=== PATIENT | female | born 1945 | race Caucasian/White ===

== ENCOUNTER 2018-04-20 09:05 | Inpatient (IN) | payer OTHER ==
[~2018-04-20] VITALS: Ht 165.1 cm; Wt 92.1 kg
[2018-04-20 11:22] LABS: Urine Bacteria FEW /hpf (None Seen); Urine Blood 2+ /uL (Negative); Urine WBC 6 /hpf (0 - 5)
[2018-04-20] MEDS ORDERED: SODIUM CHLORIDE 0.9% 1,000 ML IVB ONE (11:29)
[2018-04-20 11:34] LABS: Basophils # (auto) 0.1 uL; Basophils % (auto) 0.5 % (0.0-2.0); Eosinophils # (auto) 0 uL; Hematocrit 39.6 % (36.0-46.0); Hemoglobin 12.5 g/dL (12.2-16.2); Lymphocytes # (auto) 1.6 uL; Lymphocytes % (auto) 12.1 % (10.0-50.0); Mean Corpuscular Hgb Conc. 31.5 g/dL (32.0-36.0); Monocytes # (auto) 0.8 uL; Monocytes % (auto) 5.6 % (0.0-12.0); Neutrophils # (auto) 11.1 uL; Neutrophils % (auto) 81.8 % (37.0-80.0); Platelet Count (auto) 236 10^3/uL (140-450); Red Blood Cells 4.16 10^6/uL (4.0-5.20); White Blood Cell 13.6 10^3/uL (4.4-10.8)
[2018-04-20 11:52] LABS: Alanine Aminotransferase 34 U/L (13-56); Albumin 3.2 g/dL (3.4-5.0); Anion Gap 16 (5-15); Aspartate Aminotransferase 37 U/L (15-37); BUN/Creatinine Ratio 23.9; Blood Alcohol < 3.0 mg/dL (0-5); Calcium 7.9 mg/dL (8.5-10.1); Carbon Dioxide 13 mmol/L (21-32); Chloride 120 mmol/L (98-107); GFR African American 15 mL/min; GFR Non-African American 13 mL/min; Glucose 169 mg/dL (74-106); Magnesium 2.7 mg/dL (1.6-2.6); Potassium 4.4 mmol/L (3.5-5.1); Sodium 149 mmol/L (136-145)
[2018-04-20 11:54] LABS: Lactic Acid w/Reflex 2.3 mmol/L (0.4-2.0)
[2018-04-20 11:57] LABS: Alkaline Phosphatase 109 U/L (45-117); Bilirubin, Total 0.6 mg/dL (0.2-1.0); Total Protein 7.4 g/dL (6.4-8.2)
[2018-04-20 12:01] LABS: Blood Urea Nitrogen 89 mg/dL (7-18)
[2018-04-20] MEDS ORDERED: SODIUM CHLORIDE 0.9% 1,000 ML IV ONE ×2 (12:15→14:15)
[2018-04-20 12:51] LABS: Alcohol, Urine < 3.0 mg/dL (0-5); Amphetamine Screen, Urine NEGATIVE (NEGATIVE); Barbiturate Scree,Urine NEGATIVE (NEGATIVE); Benzodiazephine Screen, Urine NEGATIVE (NEGATIVE); Cannabinoid Screen, Urine NEGATIVE (NEGATIVE); Cocaine Screen, Urine NEGATIVE (NEGATIVE); Opiate Scree,Urine NEGATIVE (NEGATIVE); Phencyclidine Screen, Urine NEGATIVE (NEGATIVE)
[2018-04-20 12:57] LABS: INR 1.03 (0.9-1.15); Partial Thromboplastin Time 21.5 sec (23.78-33.04)
[2018-04-20] MEDS ORDERED: GLIP-115 (13:03)
[2018-04-20] MEDS ORDERED: LORA-654 (13:03)
[2018-04-20] MEDS ORDERED: ATOR1TAB (13:03)
[2018-04-20] MEDS ORDERED: IBUP800T24 (13:03)
[2018-04-20] MEDS ORDERED: FER325T PO (13:03)
[2018-04-20] MEDS ORDERED: SERT-275 (13:03)
[2018-04-20] MEDS ORDERED: GABA300C10 (13:03)
[2018-04-20] MEDS ORDERED: METF-370 (13:03)
[2018-04-20] MEDS ORDERED: ATEN50TA (13:03)
[2018-04-20] MEDS ORDERED: ENAL5TAB92 (13:03)
[2018-04-20] MEDS ORDERED: HYDR-4683 PO (13:05)
[2018-04-20] MEDS ORDERED: HYDROcodone-ACET 5/325MG TAB PO PRN (14:15)
[2018-04-20] MEDS ORDERED: LACTULOSE 20Gm/30ML SOLN PO PRN ×2 (14:15)
[2018-04-20] MEDS ORDERED: PANTOPRAZOLE 40 MG/10 ML VIAL IV ONE (14:15)
[2018-04-20] MEDS ORDERED: cefTRIAXone 1GM/10ml IVPUSH 10 ML IV ONE (14:15)
[2018-04-20] MEDS ORDERED: LORazepam 0.5 MG TAB PO PRN (14:15)
[2018-04-20] MEDS ORDERED: DEXTROSE (50%) 50ML SYRG IV PRN (14:15)
[2018-04-20] MEDS ORDERED: LABETALOL HCL 5 MG/ML ML 20ML VIAL IV PRN (14:15)
[2018-04-20] MEDS ORDERED: SODIUM BICARBONATE 50ML VIAL 50 ML in D5W 5% 1,000 ML IV SCH (14:15)
[2018-04-20] MEDS ORDERED: ACETAMINOPHEN 500 MG TAB PO PRN (14:15)
[2018-04-20] MEDS ORDERED: MORPHINE SULF INJ 2 MG/ML SYRINGE 1ML IV PRN ×2 (14:15)
[2018-04-20] MEDS ORDERED: TEMAZEPAM 15 MG CAP PO PRN (14:15)
[2018-04-20] MEDS ORDERED: NITROGLYCERIN 0.4 MG SL TAB SL PRN (14:15)
[2018-04-20] MEDS ORDERED: PROMETHAZINE HCL 25 MG/ML 1ML IV PRN (14:15)
[2018-04-20] MEDS: InsuLIN REG 1unit/0.01ml Soln (100units/ml) SC SCH ×2 (16:00→21:41)
[2018-04-20 16:40] LABS: Amylase 102 U/L (25-115); Lipase 762 U/L (73-393)
[2018-04-20] MEDS: SODIUM BICARBONATE 50ML VIAL 100 ML in D5W 5% 1,000 ML IV SCH (17:05)
[2018-04-20] MEDS: ACCU-CHEK COMFORT CURVE STRIP VI SCH ×2 (17:05→20:00)
[2018-04-20 17:10] LABS: Protein, Urine 141.2 mg/dL (0.0-11.9)
[2018-04-20 18:42] VITALS: BP 150/85
[2018-04-20] MEDS ORDERED: LORazepam 2MG/ML-1ML VIAL IV PRN (19:00)
[2018-04-20] MEDS ORDERED: CYANOCOBALAMIN (B-12) 1000 MCG/1 ML VIAL IM ONE (19:00)
[2018-04-20 19:02] LABS: Folate (Folic Acid) 8.95 ng/mL (5.38-24)
[2018-04-20 20:00] VITALS: BP 139/66
[2018-04-20] MEDS ORDERED: ATORVASTATIN 20 MG TAB PO SCH (22:00)
[2018-04-21] MEDS: SODIUM BICARBONATE 50ML VIAL 100 ML in D5W 5% 1,000 ML IV SCH ×2 (01:48→12:58)
[2018-04-21] MEDS: ACCU-CHEK COMFORT CURVE STRIP VI SCH ×6 (04:00→20:00)
[2018-04-21] MEDS: InsuLIN REG 1unit/0.01ml Soln (100units/ml) SC SCH ×6 (04:00→20:51)
[2018-04-21 05:42] LABS: Basophils # (auto) 0.1 uL; Basophils % (auto) 0.7 % (0.0-2.0); Eosinophils # (auto) 0.2 uL; Eosinophils % (auto) 1.6 % (0.0-7.0); Hematocrit 29.5 % (36.0-46.0); Hemoglobin 9.6 g/dL (12.2-16.2); Lymphocytes # (auto) 2.3 uL; Lymphocytes % (auto) 20.7 % (10.0-50.0); Mean Corpuscular Hemoglobin 31.3 pg (28.0-32.0); Mean Corpuscular Hgb Conc. 32.6 g/dL (32.0-36.0); Monocytes # (auto) 0.7 uL; Monocytes % (auto) 6.6 % (0.0-12.0); Neutrophils # (auto) 7.9 uL; Neutrophils % (auto) 70.4 % (37.0-80.0); Nucleated Red Blood Cells % 0.1 %; Platelet Count (auto) 178 10^3/uL (140-450); Red Blood Cells 3.07 10^6/uL (4.0-5.20); White Blood Cell 11.2 10^3/uL (4.4-10.8)
[2018-04-21 06:05] LABS: Albumin 2.3 g/dL (3.4-5.0); BUN/Creatinine Ratio 29.6; Calcium 6.6 mg/dL (8.5-10.1)
[2018-04-21 06:13] LABS: Bilirubin, Total 0.5 mg/dL (0.2-1.0); Total Protein 5.5 g/dL (6.4-8.2)
[2018-04-21 08:00] VITALS: BP 123/66
[2018-04-21] MEDS ORDERED: CYANOCOBALAMIN 500 MCG TAB PO SCH (10:00)
[2018-04-21] MEDS: PANTOPRAZOLE 40 MG/10 ML VIAL IV SCH (11:14)
[2018-04-21] MEDS: ASPirin 81 mg TAB PO SCH (11:14)
[2018-04-21] MEDS: cefTRIAXone 1GM/10ml IVPUSH 10 ML IV SCH (11:14)
[2018-04-21] MEDS: ENOXAPARIN SOD 30 MG/0.3 ML SYRINGE SC SCH (11:15)
[2018-04-21] MEDS: CYANOCOBALAMIN 500 MCG TAB PO SCH (11:15)
[2018-04-21 12:00] VITALS: BP 114/57
[2018-04-21 16:00] VITALS: BP 111/54
[2018-04-21 20:00] VITALS: BP_SYST 123; BP_SYST 97; BP_DIAS 48; BP_DIAS 65
[2018-04-21] MEDS: ATORVASTATIN 20 MG TAB PO SCH (21:42)
[2018-04-22] MEDS: SODIUM BICARBONATE 50ML VIAL 100 ML in D5W 5% 1,000 ML IV SCH ×3 (01:30→21:48)
[2018-04-22 04:00] VITALS: BP 138/61
[2018-04-22] MEDS: ACCU-CHEK COMFORT CURVE STRIP VI SCH ×5 (04:00→21:25)
[2018-04-22] MEDS: InsuLIN REG 1unit/0.01ml Soln (100units/ml) SC SCH ×5 (04:00→21:26)
[2018-04-22 05:32] LABS: Basophils # (auto) 0 uL; Basophils % (auto) 0.5 % (0.0-2.0); Eosinophils # (auto) 0.3 uL; Eosinophils % (auto) 3.4 % (0.0-7.0); Hematocrit 28.4 % (36.0-46.0); Hemoglobin 9.7 g/dL (12.2-16.2); Lymphocytes % (auto) 27.2 % (10.0-50.0); Mean Corpuscular Hemoglobin 31.9 pg (28.0-32.0); Mean Corpuscular Hgb Conc. 34.2 g/dL (32.0-36.0); Mean Corpuscular Volume 93.1 fL (80.0-100.0); Monocytes # (auto) 0.7 uL; Monocytes % (auto) 8.9 % (0.0-12.0); Neutrophils # (auto) 4.5 uL; Platelet Count (auto) 162 10^3/uL (140-450); Red Blood Cells 3.05 10^6/uL (4.0-5.20); Red Cell Distribution Width 14.8 % (11.8-14.3); White Blood Cell 7.4 10^3/uL (4.4-10.8)
[2018-04-22 05:58] LABS: Calcium 7.1 mg/dL (8.5-10.1); Magnesium 1.7 mg/dL (1.6-2.6)
[2018-04-22] MEDS ORDERED: POTASSIUM CHL 20 Meq TABLET PO ONE ×2 (07:15→14:00)
[2018-04-22 08:00] VITALS: BP 139/60
[2018-04-22] MEDS: MAGNESIUM SULFATE 1GM/100ML 100 ML IV SCH ×3 (08:22→11:27)
[2018-04-22] MEDS: cefTRIAXone 1GM/10ml IVPUSH 10 ML IV SCH (08:22)
[2018-04-22] MEDS: PANTOPRAZOLE 40 MG/10 ML VIAL IV SCH (10:28)
[2018-04-22] MEDS: ASPirin 81 mg TAB PO SCH (10:28)
[2018-04-22] MEDS: CYANOCOBALAMIN 500 MCG TAB PO SCH (10:29)
[2018-04-22] MEDS: ENOXAPARIN SOD 30 MG/0.3 ML SYRINGE SC SCH (10:29)
[2018-04-22] MEDS: amLODIPine BESYLATE 5 MG TAB PO SCH (10:30)
[2018-04-22] MEDS ORDERED: LORazepam 2MG/ML-1ML VIAL IV ONE (10:30)
[2018-04-22 12:00] VITALS: BP 111/53
[2018-04-22 16:00] VITALS: BP 103/43
[2018-04-22 19:48] VITALS: BP 131/72
[2018-04-22] MEDS: ATORVASTATIN 20 MG TAB PO SCH (21:25)
[2018-04-23] VITALS (8 sets, daily range): BP systolic 125–156; BP diastolic 46–84
[2018-04-23] MEDS: ACCU-CHEK COMFORT CURVE STRIP VI SCH ×4 (05:37→21:47)
[2018-04-23] MEDS: InsuLIN REG 1unit/0.01ml Soln (100units/ml) SC SCH ×4 (05:41→21:47)
[2018-04-23 06:06] LABS: Calcium 7.5 mg/dL (8.5-10.1); Magnesium 2.4 mg/dL (1.6-2.6); Potassium 3.4 mmol/L (3.5-5.1)
[2018-04-23] MEDS: CYANOCOBALAMIN 500 MCG TAB PO SCH (10:07)
[2018-04-23] MEDS: ENOXAPARIN SOD 30 MG/0.3 ML SYRINGE SC SCH (10:07)
[2018-04-23] MEDS: ASPirin 81 mg TAB PO SCH (10:07)
[2018-04-23] MEDS: PANTOPRAZOLE 40 MG/10 ML VIAL IV SCH (10:07)
[2018-04-23] MEDS: amLODIPine BESYLATE 5 MG TAB PO SCH (10:08)
[2018-04-23] MEDS: cefTRIAXone 1GM/10ml IVPUSH 10 ML IV SCH (10:08)
[2018-04-23] MEDS: POTASSIUM CHL 20 Meq TABLET PO SCH ×2 (13:45→18:04)
[2018-04-23] MEDS ORDERED: HYDROcodone-ACET 5/325MG TAB PO PRN (13:45)
[2018-04-23] MEDS: ATORVASTATIN 20 MG TAB PO SCH (21:47)
[2018-04-24] MEDS: ACCU-CHEK COMFORT CURVE STRIP VI SCH ×2 (06:16→12:17)
[2018-04-24] MEDS: InsuLIN REG 1unit/0.01ml Soln (100units/ml) SC SCH ×2 (06:16→11:30)
[2018-04-24 07:03] LABS: BUN/Creatinine Ratio 18.2; Magnesium 1.8 mg/dL (1.6-2.6); Potassium 4.1 mmol/L (3.5-5.1)
[2018-04-24 09:00] VITALS: BP 136/78
[2018-04-24] MEDS ORDERED: PANTOPRAZOLE 40 MG TAB PO SCH (10:00)
[2018-04-24] MEDS: MAGNESIUM SULFATE 1GM/100ML 100 ML IV SCH ×2 (10:06→12:16)
[2018-04-24] MEDS: ENOXAPARIN SOD 30 MG/0.3 ML SYRINGE SC SCH (10:07)
[2018-04-24] MEDS: cefTRIAXone 1GM/10ml IVPUSH 10 ML IV SCH (10:07)
[2018-04-24] MEDS: ASPirin 81 mg TAB PO SCH (10:07)
[2018-04-24] MEDS: amLODIPine BESYLATE 5 MG TAB PO SCH (10:07)
[2018-04-24] MEDS: CYANOCOBALAMIN 500 MCG TAB PO SCH (12:16)
[2018-04-24 13:00] VITALS: BP 160/85
[2018-04-24 17:00] VITALS: BP 160/98
== END 2018-04-24 17:40 | DRG 871 ==
LOC: EDBD 09:05 → ER 09:05 → TELE 09:06 → DOU IN ICU 15:13 → TELE-WESTW 04-23 16:37
PROVIDERS: ADMIT Internal Medicine; ATTEND Family Medicine
DX: A41.9 Sepsis, unspecified organism (principal); G93.41 Metabolic encephalopathy; N17.0 Acute kidney failure with tubular necrosis; I63.9 Cerebral infarction, unspecified; E87.0 Hyperosmolality and hypernatremia; N39.0 Urinary tract infection, site not specified; E87.2 Acidosis; N18.4 Chronic kidney disease, stage 4 (severe); M62.82 Rhabdomyolysis; R45.851 Suicidal ideations; T50.902A Poisoning by unspecified drugs, medicaments and biological substances, intentional self-harm, initial encounter; E11.21 Type 2 diabetes mellitus with diabetic nephropathy; E11.22 Type 2 diabetes mellitus with diabetic chronic kidney disease; E78.5 Hyperlipidemia, unspecified; E86.0 Dehydration; E87.6 Hypokalemia; N20.0 Calculus of kidney; G30.9 Alzheimer's disease, unspecified; T50.901A Poisoning by unspecified drugs, medicaments and biological substances, accidental (unintentional), initial encounter; I49.8 Other specified cardiac arrhythmias; F17.200 Nicotine dependence, unspecified, uncomplicated; G89.29 Other chronic pain; M54.5 Low back pain; F02.80 Dementia in other diseases classified elsewhere, unspecified severity, without behavioral disturbance, psychotic disturbance, mood disturbance, and anxiety; J44.9 Chronic obstructive pulmonary disease, unspecified; T39.1X5A Adverse effect of 4-Aminophenol derivatives, initial encounter; L89.90 Pressure ulcer of unspecified site, unspecified stage; F32.9 Major depressive disorder, single episode, unspecified; I12.9 Hypertensive chronic kidney disease with stage 1 through stage 4 chronic kidney disease, or unspecified chronic kidney disease; Z66 Do not resuscitate; Z79.82 Long term (current) use of aspirin; Z74.01 Bed confinement status; Z82.49 Family history of ischemic heart disease and other diseases of the circulatory system; Z79.899 Other long term (current) drug therapy; Z99.81 Dependence on supplemental oxygen; Z90.710 Acquired absence of both cervix and uterus; Z85.828 Personal history of other malignant neoplasm of skin; Z83.3 Family history of diabetes mellitus; Y92.89 Other specified places as the place of occurrence of the external cause; Z88.0 Allergy status to penicillin
CPT/HCPCS: 36415; 51702; 70450; 70551; 71045; 76775; 80048; 80053; 80061; 80307; 80320; 81001; 82140; 82150; 82550; 82570; 82607; 82746; 82962; 83036; 83605; 83690; 83735; 84156; 84300; 84443; 84484; 85025; 85610; 85652; 85730; 87040; 87081; 87086; 93005; 93306; 93886; 95819; 96361; 96374; 96375; 97110; 97116; 97163; 97530; 99291; C9113; J0696; J1815

== ENCOUNTER 2022-09-19 09:15 | Inpatient (IN) | payer OTHER ==
[~2022-09-19] VITALS: Ht 170.2 cm; Wt 102.8 kg
[~2022-09-19 09:15] MED LIST: ATEN50TA; ATOR-47; ENAL5TAB10 PO; FER325T PO; GABA300C10 PO; GLIP5TAB12 PO; HYDR-4833 PO; IBUP800T26; LORA0.5T20; METF-370; SERT25TA14
[2022-09-19] MEDS ORDERED: SODIUM CHLORIDE 0.9% 500 ML IVB ONE (11:00)
[2022-09-19] MEDS ORDERED: SODIUM CHLORIDE 0.9% 1,000 ML IV ONE (11:00)
[2022-09-19 11:58] LABS: Basophils # (auto) 0 10 ^3/uL (0-0.2); Basophils % (auto) 0.3 % (0.0-2.0); Eosinophils # (auto) 0.1 10 ^3/uL (0-0.8); Eosinophils % (auto) 0.9 % (0.0-7.0); Hematocrit 43.2 % (36.0-46.0); Hemoglobin 13.7 g/dL (12.2-16.2); Lymphocytes # (auto) 1.7 10 ^3/uL (0.4-5.4); Lymphocytes % (auto) 19.7 % (10.0-50.0); Mean Corpuscular Hemoglobin 32.1 pg (28.0-32.0); Mean Corpuscular Hgb Conc. 31.7 g/dL (32.0-36.0); Mean Corpuscular Volume 101.5 fL (80.0-100.0); Monocytes # (auto) 0.8 10 ^3/uL (0-1.3); Monocytes % (auto) 9.7 % (0.0-12.0); Neutrophils # (auto) 5.9 10 ^3/uL (1.6-8.6); Neutrophils % (auto) 69.4 % (37.0-80.0); Red Blood Cells 4.26 10^6/uL (4.0-5.20); Red Cell Distribution Width 15.1 % (11.8-14.3); White Blood Cell 8.6 10^3/uL (4.4-10.8)
[2022-09-19 12:07] LABS: INR 1.08 (0.9-1.15); Partial Thromboplastin Time 24.7 sec (24.6-33.4)
[2022-09-19 13:18] LABS: Albumin 3.2 g/dL (3.4-5.0); Calcium 9.6 mg/dL (8.5-10.1); Potassium 4.7 mmol/L (3.5-5.1)
[2022-09-19 13:20] LABS: BUN/Creatinine Ratio 13.6
[2022-09-19 13:22] LABS: Bilirubin, Total 0.9 mg/dL (0.2-1.0)
[2022-09-19 15:06] LABS: Urine Bacteria NONE SEEN /hpf (None Seen); Urine Blood Negative /uL (Negative); Urine Hyaline Cast FEW /lpf (0 - 2); Urine Specific Gravity 1.019 (1.001-1.035); Urine WBC 4 /hpf (0 - 5)
[2022-09-19] MEDS ORDERED: cefTRIAXone 1GM/50ML D5W 50 ML IV ONE (17:30)
[2022-09-19] MEDS ORDERED: DEXTROSE (50%) 50ML SYRG IV PRN (19:45)
[2022-09-19] MEDS ORDERED: levoFLOXacin 500MG 100 ML IV ONE (20:00)
[2022-09-19 20:59] LABS: Phosphorus 2.5 mg/dL (2.5-4.90)
[2022-09-19] MEDS: ATORVASTATIN 20 MG TAB PO SCH (21:57)
[2022-09-19] MEDS: ENOXAPARIN SOD 120 MG/0.8 ML SYRINGE SC SCH (21:57)
[2022-09-19] MEDS: METOPROLOL TARTRATE 50 MG TAB PO SCH (21:59)
[2022-09-20 03:44] LABS: Alcohol, Urine < 3.0 mg/dL (0-10); Amphetamine Screen, Urine NEGATIVE (NEGATIVE); Barbiturate Scree,Urine NEGATIVE (NEGATIVE); Benzodiazephine Screen, Urine NEGATIVE (NEGATIVE); Cannabinoid Screen, Urine NEGATIVE (NEGATIVE); Cocaine Screen, Urine NEGATIVE (NEGATIVE); Opiate Scree,Urine NEGATIVE (NEGATIVE); Phencyclidine Screen, Urine NEGATIVE (NEGATIVE)
[2022-09-20] MEDS: InsuLIN REG 1unit/0.01ml Soln (100units/ml) SC SCH ×4 (06:17→18:00)
[2022-09-20] MEDS: ACCU-CHEK COMFORT CURVE STRIP VI SCH ×4 (06:18→18:18)
[2022-09-20] MEDS: SODIUM CHLORIDE 0.9% 1,000 ML IV SCH ×2 (08:19→15:45)
[2022-09-20] MEDS ORDERED: PANTOPRAZOLE 40 MG/10 ML VIAL INJ IV SCH (10:00)
[2022-09-20] MEDS: ENOXAPARIN SOD 120 MG/0.8 ML SYRINGE SC SCH ×2 (10:00→21:19)
[2022-09-20] MEDS: ASPirin 81 mg TAB PO SCH (10:00)
[2022-09-20] MEDS: METOPROLOL TARTRATE 50 MG TAB PO SCH ×2 (10:00→21:18)
[2022-09-20 13:10] VITALS: BP 133/59
[2022-09-20] MEDS ORDERED: PIOG1TAB36 PO (13:16)
[2022-09-20] MEDS ORDERED: CARB25TA77 PO (13:16)
[2022-09-20] MEDS ORDERED: MET25T PO (13:16)
[2022-09-20 17:03] VITALS: BP 139/55
[2022-09-20 20:00] VITALS: BP 129/69
[2022-09-20] MEDS: ATORVASTATIN 20 MG TAB PO SCH (21:17)
[2022-09-20] MEDS: levoFLOXacin 250MG 50 ML IV SCH (21:21)
[2022-09-20 22:00] VITALS: BP 129/63
[2022-09-21] VITALS (7 sets, daily range): BP systolic 105–133; BP diastolic 47–69
[2022-09-21] MEDS: ACCU-CHEK COMFORT CURVE STRIP VI SCH ×4 (01:06→18:00)
[2022-09-21] MEDS: SODIUM CHLORIDE 0.9% 1,000 ML IV SCH ×3 (01:45→21:54)
[2022-09-21] MEDS: InsuLIN REG 1unit/0.01ml Soln (100units/ml) SC SCH ×4 (05:22→18:54)
[2022-09-21 06:39] LABS: Basophils # (auto) 0.1 10 ^3/uL (0-0.2); Basophils % (auto) 0.9 % (0.0-2.0); Eosinophils # (auto) 0.3 10 ^3/uL (0-0.8); Eosinophils % (auto) 4.1 % (0.0-7.0); Hematocrit 40.3 % (36.0-46.0); Hemoglobin 12.5 g/dL (12.2-16.2); Lymphocytes # (auto) 1.8 10 ^3/uL (0.4-5.4); Lymphocytes % (auto) 22.4 % (10.0-50.0); Mean Corpuscular Hemoglobin 32.1 pg (28.0-32.0); Mean Corpuscular Volume 103.3 fL (80.0-100.0); Monocytes # (auto) 0.9 10 ^3/uL (0-1.3); Neutrophils # (auto) 4.8 10 ^3/uL (1.6-8.6); Neutrophils % (auto) 61.6 % (37.0-80.0); Nucleated Red Blood Cells % 0.5 %; Red Cell Distribution Width 15.1 % (11.8-14.3); White Blood Cell 7.8 10^3/uL (4.4-10.8)
[2022-09-21 06:49] LABS: BUN/Creatinine Ratio 13.6; Calcium 8.8 mg/dL (8.5-10.1); Magnesium 1.8 mg/dL (1.6-2.6); Potassium 4.4 mmol/L (3.5-5.1)
[2022-09-21] MEDS: ASPirin 81 mg TAB PO SCH (09:52)
[2022-09-21] MEDS: ENOXAPARIN SOD 120 MG/0.8 ML SYRINGE SC SCH ×2 (09:52→22:06)
[2022-09-21] MEDS: METOPROLOL TARTRATE 50 MG TAB PO SCH ×2 (09:53→22:04)
[2022-09-21 10:40] LABS: Folate (Folic Acid) > 24.00 ng/mL (5.38-24)
[2022-09-21] MEDS: levoFLOXacin 250MG 50 ML IV SCH (21:59)
[2022-09-21] MEDS: ATORVASTATIN 20 MG TAB PO SCH (21:59)
[2022-09-21] MEDS: MIRTAZAPINE 30 MG TAB PO SCH (22:06)
[2022-09-22] MEDS: ACCU-CHEK COMFORT CURVE STRIP VI SCH ×4 (00:40→18:59)
[2022-09-22] MEDS: InsuLIN REG 1unit/0.01ml Soln (100units/ml) SC SCH ×4 (00:44→19:01)
[2022-09-22 05:00] VITALS: BP 110/39
[2022-09-22 08:00] VITALS: BP 129/57
[2022-09-22 08:06] LABS: RPR Non Reactive (Non Reactive)
[2022-09-22 09:00] VITALS: BP 129/57
[2022-09-22] MEDS: ASPirin 81 mg TAB PO SCH (09:23)
[2022-09-22] MEDS: ENOXAPARIN SOD 120 MG/0.8 ML SYRINGE SC SCH ×2 (09:24→21:58)
[2022-09-22] MEDS: METOPROLOL TARTRATE 50 MG TAB PO SCH ×2 (09:27→21:58)
[2022-09-22] MEDS: SODIUM CHLORIDE 0.9% 1,000 ML IV SCH ×2 (09:27→16:14)
[2022-09-22 13:00] VITALS: BP 126/55
[2022-09-22 20:00] VITALS: BP 99/55
[2022-09-22 21:53] VITALS: BP 99/51
[2022-09-22] MEDS: levoFLOXacin 250MG 50 ML IV SCH (21:57)
[2022-09-22] MEDS: ATORVASTATIN 20 MG TAB PO SCH (21:58)
[2022-09-22] MEDS: MIRTAZAPINE 30 MG TAB PO SCH (21:58)
[2022-09-23] VITALS (8 sets, daily range): BP systolic 102–142; BP diastolic 42–61
[2022-09-23] MEDS: ACCU-CHEK COMFORT CURVE STRIP VI SCH ×5 (00:37→23:28)
[2022-09-23] MEDS: SODIUM CHLORIDE 0.9% 1,000 ML IV SCH ×3 (03:45→23:45)
[2022-09-23] MEDS: InsuLIN REG 1unit/0.01ml Soln (100units/ml) SC SCH ×5 (06:00→23:28)
[2022-09-23] MEDS: ASPirin 81 mg TAB PO SCH (10:23)
[2022-09-23] MEDS: METOPROLOL TARTRATE 50 MG TAB PO SCH ×2 (10:24→21:10)
[2022-09-23] MEDS: ENOXAPARIN SOD 120 MG/0.8 ML SYRINGE SC SCH (10:28)
[2022-09-23] MEDS: ENOXAPARIN SOD 100 MG/1 ML SYRINGE SC SCH (21:09)
[2022-09-23] MEDS: MIRTAZAPINE 30 MG TAB PO SCH (21:10)
[2022-09-23] MEDS: ATORVASTATIN 20 MG TAB PO SCH (21:11)
[2022-09-23] MEDS: levoFLOXacin 250MG 50 ML IV SCH (21:11)
[2022-09-24 05:00] VITALS: BP 135/54
[2022-09-24] MEDS: ACCU-CHEK COMFORT CURVE STRIP VI SCH ×2 (05:19→11:55)
[2022-09-24] MEDS: InsuLIN REG 1unit/0.01ml Soln (100units/ml) SC SCH ×2 (05:20→11:56)
[2022-09-24 08:00] VITALS: BP 107/54
[2022-09-24 08:30] VITALS: BP 107/54
[2022-09-24] MEDS: ASPirin 81 mg TAB PO SCH (09:58)
[2022-09-24] MEDS: METOPROLOL TARTRATE 50 MG TAB PO SCH (09:59)
[2022-09-24] MEDS: ENOXAPARIN SOD 100 MG/1 ML SYRINGE SC SCH (10:00)
[2022-09-24 13:00] VITALS: BP 122/55
== END 2022-09-24 16:30 | disposition hospice, home (50) | DRG 71 ==
LOC: ER 09:15 → EDBD 09:15 → OVERFLOW 19:31 → TELE-WESTW 09-20 10:31 → WEST WING 09-24 10:11
PROVIDERS: ADMIT Nurse Practitioner Family; ATTEND Internal Medicine Geriatric Medicine
DX: G93.41 Metabolic encephalopathy (principal); E44.1 Mild protein-calorie malnutrition; N39.0 Urinary tract infection, site not specified; R45.851 Suicidal ideations; I65.23 Occlusion and stenosis of bilateral carotid arteries; R55 Syncope and collapse; N18.9 Chronic kidney disease, unspecified; F32.A Depression, unspecified; G20 Parkinson's disease; G25.0 Essential tremor; Z20.822 Contact with and (suspected) exposure to COVID-19; I48.91 Unspecified atrial fibrillation; E11.22 Type 2 diabetes mellitus with diabetic chronic kidney disease; F17.210 Nicotine dependence, cigarettes, uncomplicated; I12.9 Hypertensive chronic kidney disease with stage 1 through stage 4 chronic kidney disease, or unspecified chronic kidney disease; J44.9 Chronic obstructive pulmonary disease, unspecified; Z80.0 Family history of malignant neoplasm of digestive organs; Z63.4 Disappearance and death of family member; Z80.8 Family history of malignant neoplasm of other organs or systems; Z82.3 Family history of stroke; Z86.73 Personal history of transient ischemic attack (TIA), and cerebral infarction without residual deficits; Z88.2 Allergy status to sulfonamides; Z90.711 Acquired absence of uterus with remaining cervical stump; Z98.1 Arthrodesis status; Z99.81 Dependence on supplemental oxygen; Z68.35 Body mass index [BMI] 35.0-35.9, adult; Z71.6 Tobacco abuse counseling; Z88.0 Allergy status to penicillin
CPT/HCPCS: 36415; 70450; 70551; 71045; 74176; 78582; 80048; 80053; 80307; 80320; 81001; 82306; 82570; 82607; 82746; 82962; 83036; 83090; 83735; 84100; 84300; 84443; 84484; 85025; 85379; 85610; 85652; 85730; 86592; 87086; 87426; 92610; 93005; 93306; 93886; 95819; 96361; 96365; 96366; 96367; 96375; 97110; 97116; 97163; 97530; C9113; G0378; J0696; J1815; J1956